=== PATIENT | male | born 1965 ===

== ENCOUNTER 2017-05-12 18:23 | Emergency (ER) | payer OTHER, MEDICAID ==
[2017-05-12 18:32] VITALS: BP 144/92; PULSE 60; RESP 18; TEMP 97.9; O2SAT 99
[2017-05-12] MEDS ORDERED: Naproxen 500 MG TAB PO STA (20:55)
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
--- NOTE | 2017-05-13 08:19 | RAD ---
PROCEDURE: Cervical Spine Radiographs. HISTORY: Pain. COMPARISON: None. FINDINGS: BONES: There is degenerative 3 mm retrolisthesis of C4 on C5. There is normal cervical lordosis. There is diffuse bone demineralization. There is no acute fracture or bone destruction. The craniocervical junction is normal. The atlantoaxial joint is normal. DISC SPACES: There is multilevel degenerative disc disease with anterior osteophytes, reduced disc heights and multilevel facet arthropathy, worse at C4-5. SOFT TISSUES: Normal. No prevertebral soft tissue swelling. OTHER FINDINGS: None. IMPRESSION: Multilevel degenerative disc disease, worse at C4-5 with 3 mm retrolisthesis of C4 on C5.
--- NOTE | 2017-05-13 08:24 | RAD ---
PROCEDURE: Skull x-ray. HISTORY: COMPARISON: None available. TECHNIQUE: AP and lateral views of the skull were obtained. FINDINGS: There is no acute displaced fracture. Bone mineralization is normal. The sella turcica is normal. IMPRESSION: No acute fracture.
== END 2017-05-12 21:21 | disposition home or self-care (01) ==
LOC: H.ER 18:23
DX: S09.90XA Unspecified injury of head, initial encounter (principal); M54.2 Cervicalgia; V43.52XA Car driver injured in collision with other type car in traffic accident, initial encounter; Y92.410 Unspecified street and highway as the place of occurrence of the external cause